=== PATIENT | male | born 1955 | race Two or more races ===

== ENCOUNTER 2024-06-29 07:39 | Outpatient (CLI) | payer OTHER | END 2024-06-29 07:42 | disposition home or self-care (01) | LOC: NUCLEAR 07:39 | PROVIDERS: ATTEND Internal Medicine Hematology & Oncology | DX: C20 Malignant neoplasm of rectum (principal); C78.7 Secondary malignant neoplasm of liver and intrahepatic bile duct | CPT/HCPCS: 78815; A9552 ==

== ENCOUNTER 2024-08-02 05:30 | Day surgery (SDC) | payer OTHER ==
[2024-07-29 11:25] LABS: BASO % 0.2 % (0.1-1.2); EOS % 0.8 % (0.7-7.0); HEMATOCRIT 32.1 % (40.1-51.0); HEMOGLOBIN 11.1 g/dL (13.7-17.5); LYMPH # 1.26 (1.18-3.74); LYMPH % 9.9 % (19.3-53.1); MEAN CORPUSCULAR HEMOGLOBIN 28.1 pg (25.6-32.2); MONO # 1.12 (0.24-0.82); MONO % 8.8 % (4.7-12.5); PLATELET COUNT 445 K/uL (163-369); RED BLOOD COUNT 3.95 M/uL (4.63-6.08); RED CELL DISTRIBUTION WIDTH 15.5 % (11.6-14.4)
[2024-07-29 11:34] LABS: PH,URINE 5.5 (5.0-8.0); URINE APPEARANCE Clear; URINE BILIRRUBIN Small (NEGATIVE); URINE BLOOD Negative; URINE COLOR Dark Yellow; URINE GLUCOSE Negative (NEGATIVE); URINE KETONE 15 (NEGATIVE); URINE LEUKOCYTE Trace; URINE NITRATE Negative; URINE PROTEIN 30 (NEGATIVE)
[2024-07-29 11:38] LABS: URINE BACTERIA 29.3 uL (0.0-1933); URINE CAST 3.09 uL (0.0-1.40); URINE RBC 23.7 uL (0.0-20.8); URINE WBC 16.9 uL (0.0-23.2)
[2024-07-29 11:51] LABS: INR 1.07; PARTIAL THROMBOPLASTIN TIME 24.8 SECONDS (22.0-34.0); PROTHROMBIN TIME 11.6 SECONDS (9.0-11.5)
[2024-07-29 11:59] LABS: URINE CRYSTALS NEGATIVE /HPF; URINE MUCUS MODERATE
[2024-07-29 12:01] LABS: ALBUMIN 3.2 gm/dL (3.4-5.0); BILIRUBIN TOTAL 0.73 mg/dL (0.3-1.2); CALCIUM 9.6 mg/dL (8.5-10.1); CREATININE SERUM 0.8 mg/dL (0.70-1.30); GFR 95.85; GLOBULINA 3.6 G/DL (2.4-3.5); POTASSIUM 4.59 mEq/L (3.5-5.1); TOTAL PROTEIN 6.8 gm/dL (6.4-8.2)
[2024-08-02] MEDS ORDERED: CEFAZOLIN SODIUM 1,000 MG VIAL ONE ×2 (12:30→16:19)
[2024-08-02] MEDS ORDERED: LIDOCAINE HCL 1% 20 ML VIAL IJ ONE (13:07)
[2024-08-02] MEDS ORDERED: HEPARIN SODIUM,PORCINE/PF 100 UNIT/ML SYRINGE IV ONE (13:08)
[2024-08-02] MEDS ORDERED: CEFAZOLIN SODIUM 1,000 MG VIAL IV SCH (15:00)
[2024-08-02] MEDS ORDERED: FAMOTIDINE/PF 20 MG/10 ML SYRINGE IV SCH (15:00)
[2024-08-02] MEDS ORDERED: FAMOTIDINE/PF 20 MG/2 ML VIAL ONE (16:19)
[2024-08-02] MEDS ORDERED: MORPHINE SULFATE 4 MG/ML VIAL IV ONE (16:50)
== END 2024-08-02 18:00 | disposition home or self-care (01) ==
LOC: CIR.AMB 05:30
PROVIDERS: ATTEND Specialist
DX: C20 Malignant neoplasm of rectum (principal)
CPT/HCPCS: 36561; C1751